=== PATIENT | male | born 1975 | race Caucasian/White ===

== ENCOUNTER 2020-09-17 17:47 | Emergency (ER) | payer SELFPAY ==
[~2020-09-17] VITALS: Ht 185.4 cm; Wt 99.8 kg
== END 2020-09-17 18:01 ==
LOC: ER 17:47
DX: M79.10 Myalgia, unspecified site (principal); F41.9 Anxiety disorder, unspecified; V89.2XXA Person injured in unspecified motor-vehicle accident, traffic, initial encounter; Y93.89 Activity, other specified; Y92.410 Unspecified street and highway as the place of occurrence of the external cause; Y99.8 Other external cause status